=== PATIENT | male | born 1995 | race Caucasian/White ===

== ENCOUNTER 2025-06-06 10:54 | Emergency (ER) | payer BC, SELFPAY ==
[2025-06-06 11:03] VITALS: BP 116/76
--- NOTE | 2025-06-06 11:26 | ED.GENMED ---
Addendum entered and electronically signed by Mahendra Reilly MD 06/07/25 09:45:
Patient returns for recheck. Feels it is doing well. No systemic symptoms. No fever or chills.
On exam I feel it is improved some. Swelling is decreased. Erythema is decreased. Minimal drainage. Nontoxic in appearance
Will continue as planned with dual antibiotic coverage pending culture sensitivities. Close follow-up with primary physician and instructions to return with any progression in symptoms or systemic symptoms
Original Note:
History of Present Illness
<Ynes Neves PA-C - Last Filed: 06/06/25 14:18>
General
Chief Complaint: Skin Problem
Source: patient
Exam Limitations: none
Time Seen by Provider: 06/06/25 11:13
History of Present Illness
History of Present Illness:
30yoM with no significant past medical history presenting for evaluation of a left lower leg wound. Symptoms initially began 1 week ago and looked like a bug bite. He believes he got an infection from [place]. He was seen by urgent care 4 days
ago and started on a course of doxycycline. The redness has lightened but has not gone away. He denies any spreading redness. He started to notice purulent drainage starting yesterday. He denies any fevers, chills, body aches and is otherwise
feeling well.
Phy Exam
<Ynes Neves PA-C - Last Filed: 06/06/25 14:18>
General Physical Exam
General Presentation: well appearing and no apparent distress
General Skin: warm and dry
General Habitus: normal
General Mental: alert
ENT Exam
ENT Exam: normocephalic
Pulmonary Exam
Pulmonary Exam: no respiratory distress
Neurological Exam
Neurological Exam: alert
Car Coma Scale
Eye Opening: Spontaneous
Verbal Response: Oriented
Motor Response: Obeys Commands
GCS Total Score: 15
Skin Exam
Skin Exam: warm/dry and other (Wound noted to anterior L lower leg with purulent drainage and focal area of swelling. +Surrounding erythema and warmth to anterior lower leg. No circumferential erythema or proximal red streaking. No crepitus or pain
out of proportion. )
Psychiatric Exam
Psychiatric Exam: normal mood/affect
Course
<Ynes Neves PA-C - Last Filed: 06/06/25 14:18>
Orders/Labs/Results
Orders:
Orders
06/06/25 11:25
CR Leg Tibia/fibula Left 2 Vw Urgent
Comment:
Reason For Exam: wound
06/06/25 12:07
Complete Blood Count/With Diff Urgent
Comprehensive Metabolic Panel Urgent
Wound Culture [Wound/Abscess/Other Culture] Urgent
FRANNY Source: Abscess
Specimen Description:
Date Specimen was Collected: 06/06/25
Time Specimen was Collected: 12:02
Comment: L lower leg
06/06/25 12:41
CeFAZolin 2 GRAM [Ancef] 2 grams in 10 ml IV NOW
Abnormal Lab Results
06/06/25
12:07
RBC 4.48 L 10^6/uL
(4.70-6.10)
MCH 32.1 H pg
(27.0-31.0)
Absolute Monos (auto) 0.7 H 10^3/uL
(0.1-0.6)
Monocytes % 12.9 H %
(1.7-9.3)
Carbon Dioxide 31 H mmol/L
(22-30)
06/06/25 12:07
06/06/25 12:07
Vital Signs
Initial and Last Documented VS:
Initial Vital Signs
Temp Pulse Resp BP Pulse Ox
97.6 F 50 18 116/76 99
06/06/25 11:03 06/06/25 11:03 06/06/25 11:03 06/06/25 11:03 06/06/25 11:03
Last Documented Vital Signs
Temp Pulse Resp BP Pulse Ox
97.6 F 78 20 119/85 99
06/06/25 11:03 06/06/25 13:26 06/06/25 13:26 06/06/25 13:26 06/06/25 13:26
<Mahendra Reilly MD - Last Filed: 06/06/25 12:38>
Orders/Labs/Results
Orders:
Orders
06/06/25 11:25
CR Leg Tibia/fibula Left 2 Vw Urgent
Comment:
Reason For Exam: wound
06/06/25 12:07
Complete Blood Count/With Diff Urgent
Comprehensive Metabolic Panel Urgent
Wound Culture [Wound/Abscess/Other Culture] Urgent
FRANNY Source: Abscess
Specimen Description:
Date Specimen was Collected: 06/06/25
Time Specimen was Collected: 12:02
Comment: L lower leg
06/06/25 12:41
CeFAZolin 2 GRAM [Ancef] 2 grams in 10 ml IV NOW
Abnormal Lab Results
06/06/25
12:07
RBC 4.48 L 10^6/uL
(4.70-6.10)
MCH 32.1 H pg
(27.0-31.0)
Absolute Monos (auto) 0.7 H 10^3/uL
(0.1-0.6)
Monocytes % 12.9 H %
(1.7-9.3)
Carbon Dioxide 31 H mmol/L
(22-30)
06/06/25 12:07
06/06/25 12:07
Vital Signs
Initial and Last Documented VS:
Initial Vital Signs
Temp Pulse Resp BP Pulse Ox
97.6 F 50 18 116/76 99
06/06/25 11:03 06/06/25 11:03 06/06/25 11:03 06/06/25 11:03 06/06/25 11:03
Last Documented Vital Signs
Temp Pulse Resp BP Pulse Ox
97.6 F 78 20 119/85 99
06/06/25 11:03 06/06/25 13:26 06/06/25 13:26 06/06/25 13:26 06/06/25 13:26
Procedures
<Ynes Neves PA-C - Last Filed: 06/06/25 14:18>
Incision/Drainage/Joint Aspiration
Left Lower Anterior Leg:
Anethesia: 1% Lidocaine with Epi
Preparation: cleaned with Betadine
Type of procedure: incise and drain
Nature of site: abscess
Description of abscess: less than 3cm
Loculations broken up: Yes
How much fluid was obtained?: small amount
Fluid description: purulent
Treatment: left open for drainage and antibiotics started
<Ynes Neves PA-C - Last Filed: 06/06/25 14:18>
MDM/Problems Addressed
Differential Diagnosis Includes:
30yoM here with L lower leg redness and wound. Started on doxy 4 days ago and redness is persistent. Started to have purulent drainage yesterday. No f/c. VSS. He is well-appearing in no distress. There is a wound noted with purulent discharge and
surrounding cellulitis. No crepitus, pain or proportion, or clinical signs of NSTI. Differential diagnosis includes: Cellulitis, abscess, doubt osteomyelitis
Initial ED plan: Check CBC, CMP, left tib/fib x-rays. Will attempt I&D.
<Ynes Neves PA-C - Last Filed: 06/06/25 14:18>
*Pulse Oximetry
SaO2: 99
Oxygen Mode of Delivery: Room air
Patient hypoxic: no
*Critical Care Note
Total Time (30-74mins, 75-104mins- exclusive of procedures): Not Applicable
<Ynes Neves PA-C - Last Filed: 06/06/25 14:18>
Update Note
Update Note:
Labs unremarkable including normal white count. X-ray is negative other than subcutaneous edema. I&D performed at bedside and small amount of purulence able to be expressed. Wound culture sent. Patient is not meeting any SIRS criteria and I
suspect symptoms will start to improve now that abscess is drained. Dose of IV Ancef given in ED. Will switch antibiotics to Keflex and Bactrim. Patient was advised to return to the ED tomorrow for a reassessment. ED return precautions reviewed
including spreading redness and fevers. Patient in agreement with plan and was discharged in stable condition.
ED Attending Note
<Ynes Neves PA-C - Last Filed: 06/06/25 14:18>
-
Portions of this chart may have been created with voice recognition software.� Occasional wrong word or��sound alike� substitutions may have occurred due to the inherent limitations of voice recognition software.
<Mahendra Reilly MD - Last Filed: 06/06/25 12:38>
ED Attending Note
Patient seen and examined by attending physician: Yes
I performed the substantive portion of visit, reviewed & personally made and approve the management plan that is documented in note by myself or JAYLEEN.: Yes
ED Attending Note:
Patient who had a small pimple to the left lower leg this started about a week ago. Started doxycycline 4 to 5 days ago. Started draining 1+ day ago. No systemic symptoms denying fever or chills. No trauma. Feels it is worse this morning.
However family feels it is improved after being drained here prior to my evaluation.
On exam patient is nontoxic in no distress. Warm and dry. Perfusing well. Regular rate. No respiratory distress.
Area of erythema ecchymosis and open wound to the left lower leg. Some warmth. No obvious tenderness. No cord. No posterior calf tenderness. Good distal pulses and color.
Impression is local cellulitis. Local abscess. Likely drainage is the [place] to this. Discussed inpatient versus outpatient management. Very reasonable to do outpatient management. Will change to Bactrim plus cephalosporin. I can check it tomorrow
Discharge Plan
Departure
Patient Disposition: Home (Routine Discharge)
Date of Disposition: 06/06/25
Time of Disposition: 12:46
Patient with high blood pressure during this ER visit?: No
Discharge Problem:
Cellulitis and abscess of left lower extremity
Instructions: Cellulitis (Skin Infection), Adult (DC)
Prescriptions:
New
cephalexin 500 mg capsule
500 mg PO Q6H 7 Days Qty: 28 0RF
sulfamethoxazole-trimethoprim [Bactrim DS] 800-160 mg tablet
1 tab PO BID Qty: 14 0RF
Referrals:
Randy Benítez DO [Family Provider, Family Practice]
Activity Restrictions/Additional Instructions:
Switch antibiotics to Keflex and Bactrim.
Return to the ER tomorrow morning for reassessment. You should return sooner with any worsening symptoms including fevers or spreading redness.
Interventions
Interventions:
*Risk Screen - Suicide Last Done: 06/06/25 11:03
*General Assessment Last Done: 06/06/25 11:03
*Neglect/Abuse Screening Last Done: 06/06/25 11:03
*ED COVID-19 Vaccine History Last Done: 06/06/25 12:00
*ED Influenza Vaccine History Last Done: 06/06/25 12:00
*Nursing Disposition Last Done: 06/06/25 13:26
ED-Skin Assessment Last Done: 06/06/25 12:00
Discharge Date and Time
Discharge Date/Time: 06/06/25 13:27
Print Language: MALAY
[2025-06-06 12:19] LABS: Hematocrit 41.8 % (39.0-52.0); Hemoglobin 14.4 g/dL (13.0-18.0); Mean Corp Hgb Conc. 34.4 g/dL (33.0-37.0); Mean Corpuscular Volume 93.3 fL (80.0-94.0); Nucleated Red Blood Cells % 0 % (-); Platelet Count 213 10^3/uL (130-400); Red Cell Dist. Width 11.7 % (11.5-14.5)
[2025-06-06 12:37] LABS: ALT (SGPT) 21 U/L (0-50); AST (SGOT) 22 U/L (17-59); Albumin 4.2 g/dl (3.5-5.0); Alkaline Phosphatase 69 U/L (38-126); Blood Urea Nitrogen 15 mg/dl (9-20); Calcium 9.6 mg/dl (8.4-10.2); Carbon Dioxide 31 mmol/L (22-30); Chloride 103 mmol/L (98-107); Glucose 89 mg/dl (70-99); Potassium 4.1 mmol/L (3.5-5.1); Sodium 139 mmol/L (135-145); Total Protein 6.7 g/dl (6.3-8.2); eGFR > 60.00
[2025-06-06] MEDS: ANCEF 10 IV (12:58)
[2025-06-06 13:26] VITALS: BP 119/85
== END 2025-06-06 13:27 | disposition home or self-care (01) ==
LOC: EMR 10:54
PROVIDERS: Physician Assistant; EMERGENCY PHYSICIAN Emergency Medicine; FAMILY PHYSICIAN Family Medicine
DX: L02.416 Cutaneous abscess of left lower limb (principal); L03.116 Cellulitis of left lower limb
CPT/HCPCS: 10060; 99284; 96374; 73590; 80053; 85025; 87070; 87147; 87186; 87205